=== PATIENT | male | born 1960 | race Two or more races ===

== ENCOUNTER 2024-11-08 09:40 | Day surgery (SDC) | payer MEDICAID, SELFPAY ==
--- NOTE | 2024-11-04 07:00 | EKG_ITS ---
[facility] Test Date: 2024-11-04 Pat Name: LEE ANN MACKAY Department: Room: - Gender: Male Sales And Service Representative: [facility] : 1960 Requested By: Frank Billy Order Number: [id number] Reading MD: Frank Billy Measurements Intervals [place] Rate: 71 P: 44 SC: 185 QRS: -58 QRSD: 110 T: 31 QT: 408 QTc: 444 Interpretive Statements SINUS RHYTHM MARKED LEFT AXIS DEVIATION [QRS AXIS < -30] MINIMAL VOLTAGE CRITERIA FOR LVH, CONSIDER NORMAL VARIANT [MEETS CRITERIA IN ONE OF: R(aVL), S(V1), R(V5), R(V5/V6)+S(V1)] POSSIBLE ANTERIOR MYOCARDIAL INFARCTION , OF INDETERMINATE AGE [30 ms Q WAVE IN V3/V4, OR R < 0.2 mV IN V4] No previous ECG available for comparison /store/S0/[id number]/ecg/[id number].pdf
[2024-11-04 07:54] VITALS: BMI 43.2
[2024-11-04 08:23] LABS: Collection Type, Urine Clean Catch
[2024-11-04 08:51] LABS: Basophils # (Auto) 0.1 Thou/mm3 (0.0-0.2); Basophils % (Auto) 1 % (0-2.5); Eosinophils # (Auto) 0.3 Thou/mm3 (0.0-0.5); Eosinophils % (Auto) 2 % (0-10); Hematocrit 43.9 % (41.0-53.0); Hemoglobin 13.9 g/dL (13.5-16.0); Immature Granulocytes % (Auto) 1 % (0-0); Immature Granulocytes Auto 0.08 Thou/mm3 (0.00-0.00); Lymphocytes % (Auto) 23 % (10-50); Mean Corpuscular HGB Conc 31.7 g/dl (31.0-37.0); Mean Corpuscular Hemoglobin 24.7 pg (25.0-35.0); Mean Corpuscular Volume 78 fL (80-100); Monocytes # (Auto) 1.3 Thou/mm3 (0.0-0.8); Monocytes % (Auto) 10 % (0-12); Neutrophils # (Auto) 8.4 Thou/mm3 (1.8-7.7); Neutrophils % (Auto) 64 % (37-80); Nucleated Red Blood Cell % 0 /100 WBC (0); Platelet Count 283 Thou/mm3 (140-440); RDW Standard Deviation 42.4 fL (35.1-43.9); Red Blood Count 5.62 Miln/mm3 (4.50-5.90); White Blood Count 13.1 Thou/mm3 (3.8-10.6)
[2024-11-04 09:14] LABS: Alanine Aminotransferase 17 U/L (10-49); Albumin, Serum 4.4 gm/dL (3.4-4.8); Albumin/Globulin Ratio 1.6 (1.2-2.2); Alkaline Phosphatase 103 U/L (46-116); Anion Gap 7 (7-16); Aspartate Amino Transferase 15 U/L (0-34); BUN/Creatinine Ratio 21 Ratio (12-20); Bilirubin,Total 0.9 mg/dL (0.3-1.2); Blood Urea Nitrogen 17 mg/dL (9-23); Calcium 9.3 mg/dL (8.3-10.6); Calcium (Corrected) 9.3 mg/dL (8.5-10.1); Carbon Dioxide 30.2 mMol/L (20.0-31.0); Chloride 101 mMol/L (98-107); Creatinine (Component) 0.8 mg/dL (0.6-1.3); Estimated Creatinine Clearance 99.9 mL/min (>60); Globulin 2.7 gm/dL (2.3-3.5); Glucose 180 mg/dL (74-106); Osmolality,Calculated 282 (275-295); Potassium 4.5 mMol/L (3.4-5.1); Sodium 138 mMol/L (136-145); Total Protein 7.1 gm/dL (5.7-8.2); eGFR > 60 See Note
[2024-11-04 09:18] LABS: Bacteria,Urine Rare; Bilirubin,Urine Negative (Negative); Blood,Urine Negative (Negative); Clarity,Urine Clear (Clear/Hazy); Color,Urine Lt-Yellow (Lt Yel-Yel); Glucose, Urine 4+ (Negative); Ketones,Urine Negative (Negative); Leukocyte Esterase,Urine Positive (Negative); Nitrite,Urine Negative (Negative); PH,Urine 5.5 (5.0-7.0); Protein,Urine Negative (Neg - Trace); RBC,Urine 13 /hpf (0-3); Squamous Epithelial Cell,Urine 1 /hpf (0-5); Urobilinogen,Urine Negative mg/dL (0.0-1.0); WBC,Urine 14 /hpf (0-5)
--- NOTE | 2024-11-07 14:26 | ESHP_ITS ---
RE: TATY SOMMER : 1960 DATE OF ADMISSION: 11/08/2024 HISTORY OF PRESENT ILLNESS: A 64-year-old gentleman, Fijian-speaking, elevated PSA of 8.4. Percentage-free PSA is 8.2. He has nocturia x3. Urinary flow is fair. PAST SURGICAL HISTORY: None. PAST MEDICAL HISTORY: He has a history of diabetes mellitus, history of hypertension, elevated cholesterol. SOCIAL HISTORY: He has one child. ALLERGIES: NONE KNOWN. HOME MEDICATIONS: He takes, 1. Metformin. 2. Tamsulosin once a day. 3. . 4. Jardiance. 5. Statin medication. 6. Januvia. 7. Aspirin. 8. Atenolol. PHYSICAL EXAMINATION: HEENT: Normal. NECK: Supple. LUNGS: Clear. CARDIOVASCULAR: Heart sounds were normal. ABDOMEN: Soft without any organomegaly. No guarding. No rigidity. EXTREMITIES: Normal. GENITOURINARY: Phallus reveals tight phimosis. Testes are down in the scrotum. RECTAL: Revealed moderately enlarged prostate. Left lobe is mildly firm with some firmness near the midline. IMPRESSION: 1. Prostatism. 2. Prostatic obstruction. 3. Elevated PSA. 4. Phimosis. 5. Diabetes mellitus. 6. Hypertension with elevated serum cholesterol. PLAN: Cystoscopy and transrectal prostatic ultrasound with ultrasound-guided prostatic needle biopsy. Planned procedure risks and complications have been discussed with the patient. The patient has understood them and agreed to proceed. DT: 13:39:23 TT: 14:24:00 Ref: [id number] - TID: [id number]
--- NOTE | 2024-11-07 15:10 | SUR.PREOP ---
WBC 13.1, Dr Billy notified and Ok to proceed.
[2024-11-08 10:08] VITALS: BP 133/70; PULSE 75; RESP 16; TEMP 36.1; O2SAT 94; BMI 42.6
[2024-11-08] MEDS: RINGERS LACTATED 1000 ML 1,000 ML 20 ML IV (10:15)
[2024-11-08 12:35] VITALS: BP 105/66; PULSE 77; RESP 18; TEMP 36.6; O2SAT 98
--- NOTE | 2024-11-08 12:35 | SUR.PHASEII ---
Pt. arrived to recovery via gurney, eyes open, responds to verbal commands, VSS, no c/o pain or nausea at this time, lung sounds clear, equal expansion bonnie., report received from Aaron KEMP and Sukhjinder IRBY communications intern and Dr. Armas.
[2024-11-08 12:40] VITALS: BP 107/66; PULSE 71; RESP 15; O2SAT 96
[2024-11-08 12:45] VITALS: BP 101/65; PULSE 69; RESP 20; O2SAT 95
--- NOTE | 2024-11-08 12:55 | SUR.PHASEII ---
1255: Received report from Justina KEMP. Pt. AAOx4, vitals stable, breathing unlabored, no complaint of pain or nausea, no dressing in place, no active bleed noted, pt. sitting upright sipping on juice and tolerating well. Pt. meets discharge criteria.
[2024-11-08 13:00] VITALS: BP 86/74; PULSE 74; RESP 20; TEMP 36.5; O2SAT 95
--- NOTE | 2024-11-08 13:15 | SUR.PHASEII ---
1315: Pt. AAOx4, vitals stable, breathing unlabored, no complaint of pain or nausea, no dressing in place, no active bleed noted, pt. tolerated sips of juice well, pt. ambulated to wheelchair with steady gait and no assist, no complications. Gave discharge instructions to the pt. and his ride using casino attendant, both verbalized understanding and had no further questions. Pt. left with all personal belongings.
--- NOTE | 2024-11-08 18:06 | ESOP_ITS ---
RE: TATY SOMMER : 1960 DATE OF OPERATION: 11/08/2024 PREOPERATIVE DIAGNOSES: Prostatism, prostatic obstruction, elevated PSA of 8.2. POSTOPERATIVE DIAGNOSES: Prostatism, prostatic obstruction, elevated PSA of 8.2. PROCEDURES PERFORMED: Cystoscopy, urethral dilatation, transrectal prostatic ultrasound with ultrasound-guided prostatic needle biopsy. ANESTHESIA: Monitored anesthesia by Dr. Armas. INDICATION: The patient is a 64-year-old gentleman with history of prostatism, nocturia 3 times, PSA 8.2. Recently, he has a moderately enlarged prostate. He has also tight phimosis. He was now brought in for cystoscopy and transrectal prostatic ultrasound with ultrasound- guided prostatic needle biopsy in view of his elevated PSA of 8.2. Planned procedure, risks, and complications have been discussed with the patient. The patient understood them and agreed to proceed. DESCRIPTION OF PROCEDURE: After the patient was brought to the operating table under adequate monitored anesthesia in dorsal lithotomy position, parts were prepped and draped in the usual fashion. Cystoscopy was carried out, which revealed tight phimosis. Meatus is open. The urethra is open. Prostatic urethra reveals moderate-sized prostate, bilobed. Residual urine 4 oz is yellow and clear. There are no intravesical stones or tumors. Ureteral orifices were found to be normal in position and appearance. Scope was withdrawn. The urethra was dilated. The patient was then turned in the left lateral position. Transrectal prostatic ultrasound was carried out. Biopsies were obtained from both lobes using ultrasound guidance. In all, 10 biopsies were obtained. Prostatic volume was measured at 25.9 cubic cm. The patient tolerated the entire procedure well and left the room in good condition. DT: 12:41:34 TT: 18:05:00 Ref: [id number] - TID: [id number]
== END 2024-11-08 13:15 | disposition home or self-care (01) ==
PROVIDERS: Anesthesiology; PCP Obstetrics & Gynecology; Referring Provider Surgery; Visit Provider Surgery
PROC: (CPT 55700; principal; 2024-11-08 12:00)
PROC: 0TJB8ZZ Inspection of Bladder, Via Natural or Artificial Opening Endoscopic (ICD-10-PCS; CPT 52000; 2024-11-08 12:00)
DX: C61 Malignant neoplasm of prostate (principal); N40.1 Benign prostatic hyperplasia with lower urinary tract symptoms; N13.8 Other obstructive and reflux uropathy; R35.1 Nocturia; N47.1 Phimosis; E11.9 Type 2 diabetes mellitus without complications; I10 Essential (primary) hypertension; E78.00 Pure hypercholesterolemia, unspecified
CPT/HCPCS: 55700; 76942; 52000; 36415; 80053; 81001; 85025; 87086; 93005; J0694; J2250; J2405; J3010; J7120

== ENCOUNTER → 2024-12-16 | Outpatient (CLI) | payer MEDICAID, SELFPAY ==
--- NOTE | 2024-12-16 12:30 | XR_ITS ---
Examination: Bone scan whole body, radioisotope Date and time of exam: December 16, 2024 1127 hours INDICATIONS: Diagnosis malignant neoplasm prostate, staging Technique: Study has been performed with intravenous administration of 23 mci 99M technetium MDP. Anterior, posterior whole body images are obtained. Images have been obtained including the lower extremities. Findings: Subtle scattered foci increased signal in the thoracic lumbar spine as well as left sacrum IMPRESSION: Positive bone scan although nonspecific Recommend follow-up plain films lumbar thoracic spine and AP pelvis
== END | disposition home or self-care (01) ==
LOC: SNUC 08:13
PROVIDERS: PCP Obstetrics & Gynecology; Referring Provider Surgery; Visit Provider Surgery
DX: R93.7 Abnormal findings on diagnostic imaging of other parts of musculoskeletal system (principal); C61 Malignant neoplasm of prostate
CPT/HCPCS: 78306; A9503

== ENCOUNTER → 2024-12-29 | Outpatient (CLI) | payer MEDICAID, SELFPAY ==
--- NOTE | 2024-12-29 11:00 | XR_ITS ---
Examination: CT pelvis without intravenous contrast. 2-D sagittal and coronal reconstructions. Date and time of exam:December 29, 2024 at 10:16 AM INDICATIONS: Diagnosis malignant neoplasm prostate 2 months ago, staging CTDI: vol (mGy) :10.7 DLP: (mGycm) : 427 Technique: Multiple 3 mm axial sections of the pelvis have been obtained with the 64 slice high resolution scanner. 2-D sagittal and coronal reconstructions. Low dose protocols were performed. One or more of the following dose reduction techniques were used; automated exposure control, adjustment of the mA and/or KV according to patient size, use of iterative reconstruction technique. Findings: Normal appendix No common iliac adenopathy 11 mm left external iliac lymph node 6 mm right external iliac lymph node Prostate 4.6 cm Normal seminal vesicles Contracted urinary bladder No osteoblastic lesions depicted IMPRESSION: 11 mm left external iliac lymph node 6 mm right external iliac lymph node Consider PET CT scan follow-up
== END | disposition home or self-care (01) ==
LOC: CCTX 09:54
PROVIDERS: PCP Obstetrics & Gynecology; Referring Provider Surgery; Visit Provider Surgery
DX: C61 Malignant neoplasm of prostate (principal)
CPT/HCPCS: 72192

== ENCOUNTER 2025-02-15 08:40 | Outpatient (RCR) | payer MEDICAID, SELFPAY ==
--- NOTE | 2025-01-17 14:08 | CTCCONSULT_ITS ---
[facility] [address], [place] [address] Consultation Note Date: 01/17/2025 MR#: [id number] Name: TATY SOMMER : 1960 Dx: C61 Malignant neoplasm of prostate Attending physician. [facility] History of Present Illness: Patient is 64-year-old gentleman with elevated PSA of 8.2 Underwent ultrasound-guided biopsy revealing Reena's grade 2 (3+4) group 2 right lobe with perineural invasion present. Left lobe biopsy was benign. PSA has recently been elevated to 10.1 on 12/28/2024. CT of the pelvis 12/29/2024 revealed 11 mm left external iliac lymph node and 6 mm right external iliac lymph node. PET scan was recommended. Bone scan 12/16/2024 showed positive bone scan showing nonspecific in TL S spine area. Patient now referred to the cancer center. Past Medical History: Diabetes hypertension Meds. Atorvastatin metformin tamsulosin loratadine atenolol Jardiance Januvia aspirin Allergies none to meds Social History: Patient Qatari-speaking lives in [place] denies smoking drinking Review of Systems: Noncontributory Physical Exam: General: Adequate nourished appearing gentleman in no acute distress HEENT: Atraumatic no cephalic extraocular is intact no oral lesions no cervical or supraclavicular adenopathy. CV: Chest clear to auscultation heart regular rate and rhythm ABD: Soft no organomegaly or tenderness EXT: No signs of clubbing or edema. Assessment:1; Group 2 right lobe prostate CA (3+4) PSA 10.[address] reveals possible pelvic adenopathy; bone scan nonspecific uptake in spine. 3. Will get PET scan to stage patient. I will see patient thereafter. Brief discussion regarding treatment options was made with the patient. 4. Thank you very much for allowing me to evaluate this patient. Cc: Jewel Billy MD [facility] Plan: Electronically signed by: Mick Ibarra MD, DABR 01/17/2025 2:06 PM
--- NOTE | 2025-02-15 13:25 | CTCCONSULT_ITS ---
Patient: TATY WINKLER : 1960 MR#: [id number] Page 2 of 2 Cancer cancer7 CONSULTATION NOTE DATE OF CONSULTATION: 02/15/2025 NAME: TATY WINKLER ACCOUNT: [id number] : 1960 AGE: 64 REFERRING PHYSICIAN: Johanna Goldman MD PRIMARY PHYSICIAN: REASON FOR VISIT: Prostate cancer ONCOLOGY HISTORY: DIAGNOSIS: Malignant neoplasm of prostate [ICD10] C61 DATE OF DIAGNOSIS: 11/08/2024 STAGE/TNM: Stage Shantal as external iliac lymph node is involved TREATMENT HISTORY: Care?Plan Start?Date Cycle Day Intent Lupron?22.5?mg?q?3?mon 02/15/2025 1 90 Curative?(adjuvant) HISTORY OF PRESENT ILLNESS: Taty Winkler, a 64-year-old male, presented for follow-up of right low prostate adenocarcinoma with new pain and tingling in extremities. His history includes Reena score 7 adenocarcinoma with perineural invasion, PSA of 10, positive bone scan, and enlarged iliac lymph nodes. He has low vitamin D, potassium, and calcium levels. Treatment initiated included starting Casodex today with planned hormone shot in 7 days, vitamin D3 supplementation, PET scan scheduling, starting on Xtandi once patient has completed prostatectomy or external beam radiation therapy depending on final stage OTHER MEDICAL HISTORY/CONDITIONS: PROSTATE CANCER - DX 11/08/24 DIABETES HYPERLIPIDEMIA HTN DENIES FAMILY HISTORY: Father:?DENIES Patient?denies?family?cancer?history. 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 aspirin - 81 mg 1 tab Daily 2. atenolol - 50 mg Daily 3. atorvastatin - 80 mg Daily 4. Casodex - 50 mg 1 tab Daily 5. Claritin - 10 mg 1 tab As directed 6. glipizide - 2.5 mg Daily 7. Januvia - 100 mg Daily 8. Jardiance - 25 mg Daily 9. lisinopril - 20 mg Daily 10. metformin - 1,000 mg Twice a Day 11. tamsulosin - 0.4 mg Daily 12. Vitamin D2 - 1,250 mcg (50,000 unit) 1 Capsule Weekly 13. Xtandi - 80 mg 160 tab Daily Medications Last Reconciled by Raven Coombs RN on 02/15/2025 ALLERGIES: No Known Drug Allergies REVIEW OF SYSTEMS: A complete 14-point review of systems was performed and is negative except as noted in interval history. PHYSICAL EXAMINATION: VITAL SIGNS: Temperature?99.1, B/P?123/77, Height?63?inches, Oxygen?Saturation?95% Weight?239?lbs (Change?since?01/17/25:?-3?lbs) PAIN: 0 - No pain ECOG Performance Status: 1 - Symptomatic; ambulatory; restricted in strenuous activity GENERAL APPEARANCE: Appears well, in no apparent distress, appropriately interactive. HEENT: Normocephalic, no temporal wasting, normal conjunctiva, no scleral icterus, normal hearing, lips without lesions, neck normal range of motion. CARDIOVASCULAR: Not assessed. PULMONARY: Normal respiratory effort, no respiratory distress or use of accessory muscles, speaking in full sentences, no tachypnea. EXTREMITIES: No pedal edema or cyanosis. SKIN: Normal skin appearance. NEUROLOGIC: Alert and oriented x4. PSHYCHIATRIC: Appropriate affect, mood normal, behavior normal, intact thought and speech. LABORATORY DATA: I have personally reviewed and interpreted each of the patient?s relevant lab tests, abnormal findings are below: Date ASSESSMENT/PLAN: Adenocarcinoma of prostate Patient has right low prostate adenocarcinoma, Reena score 7, group 2, with 3 out of 4 cores involving 25% cancer. PSA elevated to 10 on December 28, 2024. Bone scan positive but non-specific. CT scan on 12/29/24 showed 11mm left external iliac node and 6mm right external iliac node. The cancer is considered early stage and good risk, with some lymph node involvement but primarily localized to the prostate. Perineural invasion noted on right lobe biopsy. Plan: - Start Casodex today Lupron can be given after 7 days of start of Casodex Will start Xtandi once it is approved for patient Will wait for PET CT scan for complete staging Patient can get External Beam Radiotherapy with radiation to the pelvic lymph nodes if shows to go for conservative therapy or prostatectomy I will refer Mr. Winkler to urology for opinion- Continue Casodex until next visit, then switch to more effective medicine (pending insurance approval) - Perform PET scan on February 04, 2025 to check for possible adenopathy - Consider radiation therapy with anti-endocrine hormone therapy as primary treatment option - Arrange evaluations for both surgery and radiation therapy options - Follow up with Jacqui in 2 weeks for hormone shot Vitamin D Deficiency Assessment: Patient has low vitamin D levels (vitamin D820). Plan: - Start vitamin D3 supplementation - Educate patient to take vitamin D3 with fatty food for better absorption RTC in 4 to 6 weeks ORDERS: Order # Description [id number] PSA + Comprehensive Metabolic Panel - 12 + CBC with Auto Diff + MD Follow Up 4 Week [id number] MD Follow Up [id number] Initial PET/CT of Skull to Mid-Thigh RETURN TO CLINIC: I reviewed the diagnosis, prognosis, and recommended treatment/procedure options with the patient (and/or their legal insurance representative), including the potential benefits, risks, side effects and alternative therapies. We also discussed the option of no treatment and the possibility of clinical trial participation, if applicable. All questions were addressed, and they demonstrated understanding. They provided informed consent to proceed with the proposed plan of care. BILLING AND COMPLIANCE: I reviewed external records from providers outside my specialty as summarized above. I spent a total of 50 minutes on this patient?s care on the day of their visit excluding time spent related to any billed procedures. This time includes time spent with the patient as well as time spent documenting in the medical record, reviewing patients records and tests, obtaining history, placing orders, communicating with other healthcare professionals, counseling the patient, family or caregiver, and/or care coordination for the diagnoses above. Electronically Signed by: Aron Love MD T: 1:22 PM CC: PCP: Referring: Johanna Goldman This document was completed utilizing speech recognition software. Grammatical errors, random word insertions, pronoun errors, and incomplete sentences are an occasional consequence of this system due to software limitations, ambient noise, and hardware issues. Any formal questions or concerns about the content, text or information contained within the body of this dictation should be directly addressed to the provider for clarification.
== END 2025-02-16 23:59 | disposition home or self-care (01) ==
LOC: SCTC 08:40
PROVIDERS: PCP Obstetrics & Gynecology; Referring Provider Obstetrics & Gynecology; Visit Provider Internal Medicine Hematology & Oncology
DX: C61 Malignant neoplasm of prostate (principal); E55.9 Vitamin D deficiency, unspecified
CPT/HCPCS: 99213; G0463

== ENCOUNTER → 2025-03-07 | Outpatient (CLI) | payer MEDICAID, SELFPAY ==
--- NOTE | 2025-03-07 08:00 | XR_ITS ---
EXAMINATION: PET/CT FUSION SKULL TO THIGH EXAM DATE AND TIME: March 07, 2025 0903 hours COMPARISON: December 29, 2024 INDICATIONS: Diagnosis malignant neoplasm prostate, CT pelvis December 29, 2024 11 mm left external iliac lymph node, 6 mm right external iliac lymph node CTDI:vol (mGy) 10.31 DLP: (mGycm) 1070.36 PROCEDURE: 15.7 mCi FDG was administered intravenously To allow for distribution and uptake of radiotracer, the patient was allowed to rest quietly in a shielded room. Imaging was performed on an integrated 16-slice PET/CT scanner, with scanning from the skull base to the mid thigh. Serum blood glucose at the time of the injection was measured 114 mg/dL. CT scanning was performed without oral or intravenous contrast material. FINDINGS: Head and Neck: There is no duncan hypermetabolism in the neck. The visualized portions of the brain are normal in appearance on CT. Chest: There is no duncan hypermetabolism in the chest. There are no pulmonary nodules. Abdomen and Pelvis: There is no duncan hypermetabolism in retroperitoneal or pelvic chains. The spleen is normal in size and FDG avidity. Musculoskeletal: Marrow uptake is within normal range. IMPRESSION: No findings of metastatic disease
== END | disposition home or self-care (01) ==
LOC: CDIM 07:06
PROVIDERS: PCP Nurse Practitioner Family; Referring Provider Radiology Therapeutic Radiology; Visit Provider Radiology Therapeutic Radiology
DX: C61 Malignant neoplasm of prostate (principal)
CPT/HCPCS: 78815; A9552

== ENCOUNTER 2025-03-15 09:44 | Outpatient (RCR) | payer MEDICAID, SELFPAY ==
--- NOTE | 2025-03-03 06:55 | CTCTXPLNST_ITS ---
Radiation Oncology Treatment Planning Sheet Name: TATY SOMMER MR#: [id number] : 1960 Dx: C61 Malignant neoplasm of prostate Date of Service: 03/03/2025 Account #: ?? Pt Treatment Intent: curative palliative other: Stage: Procedure CPT # Ordered Spec. Procedure 08813 Nassar Complex (set-up) 99891 Pelvis/prostate 2 Nassar Simple 93934 IMRT Plan 15925 2 MLC Devices VMAT 63920 6 Nassar 3 D 59481 TRTMT dev Complex 52051 vaklok 1 TRTMT dev simple 56346 Basic Kulwinder 63791 15 Special Dosimetry 71117 Spec Physics 01624 Port Films 81204 SRS Cranial/1FX 87650 SBR 5 FX or Less /ex: 5 = 5 fx 23872 IMRT Simple 14212 7200 40 IMRT Complex 60274 IGRT 75171 40 Rad del InboundWriter 6-10 53837 Rad del InboundWriter 11- 76114 Cont Med Physics 96453 7 Treatment Planning 49983 1 Weekly Evaluation 48798 7 Rad del com 20 mev 26234 Special Port Plan 12176 TRTMT dev inter 98707 Isodose Complex 82677 Isodose simple 15560 Resp Motion Mgmt Simulation 87024 Placement of Fiducial Markers 08307 Electronically Signed By: Mick Ibarra MD, DABR 03/03/2025 6:52 AM
--- NOTE | 2025-03-12 23:55 | CTCFLWUP_ITS ---
Patient: TATY WINKLER : 1960 Page 2 of 4 FOLLOW UP NOTE DATE OF SERVICE: 03/09/2025 NAME: TATY WINKLER ACCOUNT: [id number] : 1960 AGE: 64 INTERVAL HISTORY: ONCOLOGY HISTORY: DIAGNOSIS: Malignant neoplasm of prostate [ICD10] C61 DATE OF DIAGNOSIS: 11/08/2024 STAGE/TNM: Stage Shantal as external iliac lymph node is involved TREATMENT HISTORY: Care?Plan Start?Date Cycle Day Intent Lupron?22.5?mg?q?3?mon 02/15/2025 1 90 Curative?(adjuvant) HISTORY OF PRESENT ILLNESS: Taty Winkler, a 64-year-old male, presented for follow-up of right low prostate adenocarcinoma with new pain and tingling in extremities. His history includes Froid score 7 adenocarcinoma with perineural invasion, PSA of 10, positive bone scan, and enlarged iliac lymph nodes. He has low vitamin D, potassium, and calcium levels. Treatment initiated included starting Casodex today with planned hormone shot in 7 days, vitamin D3 supplementation, PET scan scheduling, starting on Xtandi once patient has completed prostatectomy or external beam radiation therapy depending on final stage OTHER MEDICAL HISTORY/CONDITIONS: PROSTATE CANCER - DX 11/08/24 DIABETES HYPERLIPIDEMIA HTN DENIES FAMILY HISTORY: Father:?DENIES Patient?denies?family?cancer?history. 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 aspirin - 81 mg 1 tab Daily 2. atenolol - 50 mg Daily 3. atorvastatin - 80 mg Daily 4. glipizide - 2.5 mg Daily 5. Januvia - 100 mg Daily 6. Jardiance - 25 mg Daily 7. lisinopril - 20 mg Daily 8. metformin - 1,000 mg Twice a Day 9. tamsulosin - 0.4 mg Daily 10. Vitamin D2 - 1,250 mcg (50,000 unit) 1 Capsule Weekly 11. Xtandi - 80 mg 2 tab Daily Medications Last Reconciled by Johanna Pena MA on 03/09/2025 ALLERGIES: No Known Drug Allergies REVIEW OF SYSTEMS: A complete 14-point review of systems was performed and is negative except as noted in interval history. PHYSICAL EXAMINATION: VITAL SIGNS: Temperature?98, B/P?134/86, Oxygen?Saturation?93% Weight?240?lbs (Change?since?03/03/25:?-0.4?lbs) PAIN: 0 - No pain GENERAL APPEARANCE: Appears well, in no apparent distress, appropriately interactive. HEENT: Normocephalic, no temporal wasting, normal conjunctiva, no scleral icterus, normal hearing, lips without lesions, neck normal range of motion. CARDIOVASCULAR: Not assessed. PULMONARY: Normal respiratory effort, no respiratory distress or use of accessory muscles, speaking in full sentences, no tachypnea. EXTREMITIES: No pedal edema or cyanosis. SKIN: Normal skin appearance. NEUROLOGIC: Alert and oriented x4. PSHYCHIATRIC: Appropriate affect, mood normal, behavior normal, intact thought and speech. LABORATORY DATA: I have personally reviewed and interpreted each of the patient?s relevant lab tests, abnormal findings are below: Date ASSESSMENT/PLAN: Adenocarcinoma of prostate Patient has right low prostate adenocarcinoma, Reena score 7, group 2, with 3 out of 4 cores involving 25% cancer. PSA elevated to 10 on December 28, 2024. Bone scan positive but non-specific. CT scan on 12/29/24 showed 11mm left external iliac node and 6mm right external iliac node. The cancer is considered early stage and good risk, with some lymph node involvement but primarily localized to the prostate. Perineural invasion noted on right lobe biopsy. On Lupron and xtandi PET/CT negative Patient can get External Beam Radiotherapy with radiation to the pelvic lymph nodes if shows to go for conservative therapy I will refer Mr. Winkler to urology for opinion- Continue Casodex until next visit, then switch to more effective medicine (pending insurance approval) Can hold xtandi during radiation Cont Lupron and xtandi for total 1-2 years Vitamin D Deficiency Assessment: Patient has low vitamin D levels (vitamin D820). Plan: - Start vitamin D3 supplementation - Educate patient to take vitamin D3 with fatty food for better absorption RTC in 4 to 6 weeks ORDERS: Order # Description [id number] MD Follow Up [id number] Comprehensive Metabolic Panel - 12 + CBC with Auto Diff + PSA + MD Follow Up 3 Months [id number] Initial PET/CT of Skull to Mid-Thigh RETURN TO CLINIC: I reviewed the diagnosis, prognosis, and recommended treatment/procedure options with the patient (and/or their legal commercial pest control representative), including the potential benefits, risks, side effects and alternative therapies. We also discussed the option of no treatment and the possibility of clinical trial participation, if applicable. All questions were addressed, and they demonstrated understanding. They provided informed consent to proceed with the proposed plan of care. BILLING AND COMPLIANCE: I reviewed external records from providers outside my specialty as summarized above. I spent a total of 50 minutes on this patient?s care on the day of their visit excluding time spent related to any billed procedures. This time includes time spent with the patient as well as time spent documenting in the medical record, reviewing patients records and tests, obtaining history, placing orders, communicating with other healthcare professionals, counseling the patient, family or caregiver, and/or care coordination for the diagnoses above. Electronically Signed by: Aron Love MD T: 11:53 PM CC: PCP: Referring: Johanna Goldman This document was completed utilizing speech recognition software. Grammatical errors, random word insertions, pronoun errors, and incomplete sentences are an occasional consequence of this system due to software limitations, ambient noise, and hardware issues. Any formal questions or concerns about the content, text or information contained within the body of this dictation should be directly addressed to the provider for clarification.
== END 2025-03-19 23:59 | disposition home or self-care (01) ==
LOC: SCTC 09:44
PROVIDERS: PCP Obstetrics & Gynecology; Referring Provider Internal Medicine Hematology & Oncology; Visit Provider Internal Medicine Hematology & Oncology
DX: Z51.11 Encounter for antineoplastic chemotherapy (principal); Z51.0 Encounter for antineoplastic radiation therapy; C61 Malignant neoplasm of prostate
CPT/HCPCS: 77014; 77290; 77334; 96402; 99213; J9217; G0463

== ENCOUNTER 2025-04-18 10:44 | Outpatient (RCR) | payer MEDICAID, SELFPAY | END 2025-04-18 23:59 | disposition home or self-care (01) | LOC: SCTC 10:44 | PROVIDERS: PCP Obstetrics & Gynecology; Referring Provider Student in an Organized Health Care Education/Training Program; Visit Provider Radiology Therapeutic Radiology | DX: Z51.0 Encounter for antineoplastic radiation therapy (principal); C61 Malignant neoplasm of prostate | CPT/HCPCS: 77300; 77301; 77336; 77338; 77385 ==

== ENCOUNTER 2025-05-19 10:43 | Outpatient (RCR) | payer MEDICAID, SELFPAY | END 2025-05-19 23:59 | disposition home or self-care (01) | LOC: SCTC 10:43 | PROVIDERS: PCP Obstetrics & Gynecology; Referring Provider Obstetrics & Gynecology; Visit Provider Radiology Therapeutic Radiology | DX: Z51.0 Encounter for antineoplastic radiation therapy (principal); C61 Malignant neoplasm of prostate | CPT/HCPCS: 77014; 77290; 77300; 77301; 77332; 77336; 77338; 77385 ==

== ENCOUNTER 2025-06-12 10:10 | Outpatient (RCR) | payer MEDICAID, SELFPAY ==
--- NOTE | 2025-06-13 08:52 | CTCFLWUP_ITS ---
Patient: TATY WINKLER : 1960 Page 2 of 4 FOLLOW UP NOTE DATE OF SERVICE: 06/12/2025 NAME: TATY WINKLER ACCOUNT: [id number] : 1960 AGE: 64 INTERVAL HISTORY: Patient have completed radiation . patient is on Lupron and xtandi and status post EBRT. Patient is taking his medication without any side effects. ONCOLOGY HISTORY: DIAGNOSIS: Malignant neoplasm of prostate [ICD10] C61 DATE OF DIAGNOSIS: 11/08/2024 STAGE/TNM: Stage Shantal as external iliac lymph node is involved TREATMENT HISTORY: Care?Plan Start?Date Cycle Day Intent Lupron?22.5?mg?q?3?mon 02/15/2025 1 90 Curative?(adjuvant) HISTORY OF PRESENT ILLNESS: Taty Winkler, a 64-year-old male, presented for follow-up of right low prostate adenocarcinoma with new pain and tingling in extremities. His history includes Reena score 7 adenocarcinoma with perineural invasion, PSA of 10, positive bone scan, and enlarged iliac lymph nodes. He has low vitamin D, potassium, and calcium levels. Treatment initiated included starting Casodex today with planned hormone shot in 7 days, vitamin D3 supplementation, PET scan scheduling, starting on Xtandi once patient has completed prostatectomy or external beam radiation therapy depending on final stage OTHER MEDICAL HISTORY/CONDITIONS: PROSTATE CANCER - DX 11/08/24 DIABETES HYPERLIPIDEMIA HTN DENIES FAMILY HISTORY: Father:?DENIES Patient?denies?family?cancer?history. 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 aspirin - 81 mg 1 tab Daily 2. atenolol - 50 mg Daily 3. atorvastatin - 80 mg Daily 4. glipizide - 2.5 mg Daily 5. Januvia - 100 mg Daily 6. Jardiance - 25 mg Daily 7. lisinopril - 20 mg Daily 8. metformin - 1,000 mg Twice a Day 9. tamsulosin - 0.4 mg Daily 10. Vitamin D2 - 1,250 mcg (50,000 unit) 1 Capsule Weekly 11. Xtandi - 80 mg 2 tab Daily Medications Last Reconciled by Johanna Griffith MD on 06/12/2025 ALLERGIES: No Known Drug Allergies REVIEW OF SYSTEMS: A complete 14-point review of systems was performed and is negative except as noted in interval history. PHYSICAL EXAMINATION: VITAL SIGNS: Temperature?98.3, B/P?166/90, Oxygen?Saturation?94% Weight?233?lbs (Change?since?06/06/25:?0?lbs) PAIN: 0 - No pain GENERAL APPEARANCE: Appears well, in no apparent distress, appropriately interactive. HEENT: Normocephalic, no temporal wasting, normal conjunctiva, no scleral icterus, normal hearing, lips without lesions, neck normal range of motion. CARDIOVASCULAR: Not assessed. PULMONARY: Normal respiratory effort, no respiratory distress or use of accessory muscles, speaking in full sentences, no tachypnea. EXTREMITIES: No pedal edema or cyanosis. SKIN: Normal skin appearance. NEUROLOGIC: Alert and oriented x4. PSHYCHIATRIC: Appropriate affect, mood normal, behavior normal, intact thought and speech. LABORATORY DATA: I have personally reviewed and interpreted each of the patient?s relevant lab tests, abnormal findings are below: Date ASSESSMENT/PLAN: Adenocarcinoma of prostate Patient has right low prostate adenocarcinoma, Mckittrick score 7, group 2, with 3 out of 4 cores involving 25% cancer. PSA elevated to 10 on December 28, 2024. Bone scan positive but non-specific. CT scan on 12/29/24 showed 11mm left external iliac node and 6mm right external iliac node. The cancer is considered early stage and good risk, with some lymph node involvement but primarily localized to the prostate. Perineural invasion noted on right lobe biopsy. On Lupron and xtandi PET/CT negative Completed external beam radiation therapy Continue Lupron and xtandi for total 1-2 years PSA undetectable Vitamin D Deficiency Assessment: Patient has low vitamin D levels (vitamin D820). Plan: - Start vitamin D3 supplementation - Educate patient to take vitamin D3 with fatty food for better absorption RTC in 4 to 6 weeks RETURN TO CLINIC: I reviewed the diagnosis, prognosis, and recommended treatment/procedure options with the patient (and/or their legal printing supplies sales representative), including the potential benefits, risks, side effects and alternative therapies. We also discussed the option of no treatment and the possibility of clinical trial participation, if applicable. All questions were addressed, and they demonstrated understanding. They provided informed consent to proceed with the proposed plan of care. BILLING AND COMPLIANCE: I reviewed external records from providers outside my specialty as summarized above. I spent a total of 50 minutes on this patient?s care on the day of their visit excluding time spent related to any billed procedures. This time includes time spent with the patient as well as time spent documenting in the medical record, reviewing patients records and tests, obtaining history, placing orders, communicating with other healthcare professionals, counseling the patient, family or caregiver, and/or care coordination for the diagnoses above. Electronically Signed by: Aron Love MD T: 8:50 AM CC: Mick?LAMAR Ibarra PCP: Referring: Mick Ibarra This document was completed utilizing speech recognition software. Grammatical errors, random word insertions, pronoun errors, and incomplete sentences are an occasional consequence of this system due to software limitations, ambient noise, and hardware issues. Any formal questions or concerns about the content, text or information contained within the body of this dictation should be directly addressed to the provider for clarification.
== END 2025-06-18 23:59 | disposition home or self-care (01) ==
LOC: SCTC 10:10
PROVIDERS: PCP Obstetrics & Gynecology; Referring Provider Radiology Therapeutic Radiology; Visit Provider Internal Medicine Hematology & Oncology
DX: Z51.11 Encounter for antineoplastic chemotherapy (principal); C61 Malignant neoplasm of prostate; Z92.3 Personal history of irradiation
CPT/HCPCS: 96402; 99212; J9217; G0463